=== PATIENT | male | born 1935 | race Caucasian/White ===

== ENCOUNTER 2016-06-15 00:01 | Outpatient (POV) ==
[2015-09-08 12:11] VITALS: BMI 22.1
== END 2016-06-15 00:02 ==
LOC: OUTPT 00:01
PROVIDERS: ATTEND Otolaryngology
DX: H91.90 Unspecified hearing loss, unspecified ear (principal)
CPT/HCPCS: 92557; 92567

== ENCOUNTER 2016-07-12 03:22 | Outpatient (CLI) | payer OTHER ==
[2015-09-08 12:11] VITALS: BMI 22.1
== END 2016-07-12 03:23 | disposition home or self-care (01) ==
LOC: AMBL 03:22
PROVIDERS: ATTEND Family Medicine
DX: R06.02 Shortness of breath (principal); R10.9 Unspecified abdominal pain; Z95.0 Presence of cardiac pacemaker; W19.XXXA Unspecified fall, initial encounter

== ENCOUNTER 2017-02-05 02:05 | Outpatient (CLI) ==
[2015-09-08 12:11] VITALS: BMI 22.1
== END 2017-02-05 02:06 | disposition short-term general hospital (02) ==
LOC: AMBL 02:05
PROVIDERS: ATTEND Family Medicine
DX: R07.9 Chest pain, unspecified (principal); R06.9 Unspecified abnormalities of breathing; Z95.0 Presence of cardiac pacemaker

== ENCOUNTER 2017-06-01 02:04 | Outpatient (CLI) | payer OTHER ==
[2015-09-08 12:11] VITALS: BMI 22.1
== END 2017-06-01 02:05 | disposition short-term general hospital (02) ==
LOC: AMBL 02:04
PROVIDERS: ATTEND Internal Medicine Geriatric Medicine
DX: M79.604 Pain in right leg (principal); R51 Headache

== ENCOUNTER 2017-12-11 02:06 | Outpatient (CLI) ==
[2015-09-08 12:11] VITALS: BMI 22.1
== END 2017-12-11 02:25 | disposition short-term general hospital (02) ==
LOC: AMBL 02:06
PROVIDERS: ATTEND Internal Medicine Geriatric Medicine
DX: R06.02 Shortness of breath (principal); T17.990A Other foreign object in respiratory tract, part unspecified in causing asphyxiation, initial encounter; R09.81 Nasal congestion; Z95.0 Presence of cardiac pacemaker

== ENCOUNTER 2018-01-18 09:04 | Outpatient (CLI) | payer OTHER ==
[2015-09-08 12:11] VITALS: BMI 22.1
--- NOTE | 2018-01-18 11:35 | DI ---
EXAM: Double contrast esophagram. History: Dysphagia. Technique: Patient was given gas crystals. Patient was then given oral barium and multiple spot shelley ms of the esophagus and gastroesophageal junction were obtained in various projections. Findings: The course and caliber of the esophagus are within normal limits. No mucosal lesions or f illing defects identified. Tertiary waves and some mild diffuse esophageal spasm was seen. Gastroes ophageal junction is patent. No hiatal hernia. No gastroesophageal reflux was observed. The patien t swallowed two pills and passed normally down the esophagus into the stomach. Atherosclerotic vascu lar calcifications of the thoracic aorta. Impression: Tertiary waves with mild dysmotility. Examination was otherwise unremarkable.
== END 2018-01-18 09:05 | disposition home or self-care (01) ==
LOC: RAD 09:04
PROVIDERS: ATTEND Internal Medicine Gastroenterology
DX: R13.10 Dysphagia, unspecified (principal)